=== PATIENT | female | born 1960 | race Caucasian/White ===

== ENCOUNTER 2017-06-01 18:23 | Emergency (ER) | payer BC ==
[~2017-06-01] VITALS: Ht 165.1 cm; Wt 105.1 kg
[~2017-06-01 18:23] MED LIST: ATV5 PO; DVN80125 PO; PANT40TA PO; SYN100 PO
[2017-06-01 18:36] VITALS: TEMP 36.3; Ht 165.1 cm; Wt 105.1 kg
[2017-06-01] MEDS ORDERED: SODIUM CHLORIDE 0.9% 1000ML 1,000 ML IV STA (18:43)
[2017-06-01] MEDS ORDERED: ONDANSETRON INJ 2 MG/ML 2 ML VIAL IV STA (18:43)
[2017-06-01 19:05] LABS: BASO % 0.2 %; BASO ABS # 0.03 K/uL (0-0.2); COMPLETE YES; EOS % 0.8 %; IG% 0.3 %; LYMPH % 6.9 %; MEAN CELL VOLUME 81.9 fL (80-100); MEAN CORPUSCULAR HEMOGLOBIN 28.6 pg (25-34); MEAN CORPUSCULAR HGB CONC 34.9 g/dl (32-36); MEAN PLATELET VOLUME 9.8 fL (7.4-10.4); MONO % 5.5 %; NEUT % 86.3 %; PLATELET COUNT 271 K/uL (130-400); RED BLOOD COUNT 5.25 M/uL (4.2-5.4); WHITE BLOOD COUNT 17.33 K/uL (4.8-10.8)
[2017-06-01 19:25] LABS: ALT/SGPT 34 U/L (12-78); BLOOD UREA NITROGEN 16 mg/dl (7-18); BUN/CREATININE RATIO 18.1 (10-20); CALCIUM 9.4 mg/dl (8.5-10.1); CARBON DIOXIDE 27 mmol/L (21-32); CHLORIDE 102 mmol/L (98-107); GLUCOSE 108 mg/dl (70-99); POTASSIUM 3.4 mmol/L (3.5-5.1); SODIUM 138 mmol/L (136-145)
[2017-06-01 19:28] LABS: ALKALINE PHOSPHATASE 117 U/L (45-117); AST/SGOT 27 U/L (15-37)
[2017-06-01] MEDS ORDERED: GABA-112 PO (19:30)
[2017-06-01] MEDS ORDERED: LEVO100T PO (19:30)
[2017-06-01] MEDS ORDERED: ONDANSETRON HOME PACK 4MG OD TAB PO ONE (19:30)
[2017-06-01] MEDS ORDERED: NALT1TAB14 PO ×2 (19:30)
[2017-06-01] MEDS ORDERED: LORA-741 PO (19:30)
[2017-06-01] MEDS ORDERED: VALS160T60 PO (19:30)
[2017-06-01] MEDS ORDERED: CETI10TA84 PO (19:31)
[2017-06-01] MEDS ORDERED: MULT-506 PO (19:31)
[2017-06-01] MEDS ORDERED: ONDA4TAB10 SL (19:38)
--- NOTE | 2017-06-01 19:39 | EMERGENCY ROOM VISIT NOTE ---
History First contact with patient: 18:38 Chief Complaint: GI ASSESSMENT Stated Complaint: FLU LIKE SYMPTOMS- THROWING UP History of Present Illness The patient is a 56 year old female who presents to the Emergency Room with complaints of nausea vomiting and diarrhea. The patient had acute onset of the above symptoms at 11 AM today while she was at work. The patient denies any fever, abdominal pain, urinary symptoms. The patient denies any hematochezia or melena. The patient states that there are other coworkers that have had similar symptoms a few days ago and another coworker who had the same symptoms today. Review of Systems 10 system review was performed and was negative unless stated otherwise history of present illness. Past Medical/Surgical History Hypertension, cholecystectomy Social History Smoking Status: Never Smoker Alcohol Use: none Drug Use: none Marital Status: Housing Status: lives with family Occupation Status: employed Current/Historical Medications Scheduled Cetirizine (Zyrtec), 10 MG PO DAILY Gabapentin (Neurontin), 200 MG PO TID Levothyroxine Sodium (Synthroid), 100 MCG PO DAILY Lorazepam (Ativan), 0.5 MG PO HS Multivitamin (Multivitamin), 1 TAB PO DAILY Naltrexone HCl-Bupropion HCl (Contrave 8-90 mg), 2 TABS PO QAM Naltrexone HCl-Bupropion HCl (Contrave 8-90 mg), 1 TAB PO QPM Pantoprazole (Protonix), 40 MG PO DAILY Valsartan/Hctz (Diovan Hct 160MG/25MG), 0.5 MG PO DAILY Physical Exam Vital Signs Date Time Temp Pulse Resp B/P (MAP) Pulse Ox O2 Delivery O2 Flow Rate FiO2 06/01/17 18:36 36.3 98 16 136/95 98 Room Air Physical Exam GENERAL: 56-year-old white female appears in no acute distress. MENTAL Status: Alert and oriented 3. MOUTH: Mucosa is moist NECK: Supple, no lymphadenopathy noted. No carotid bruits noted. LUNGS: Clear auscultation without wheezes rales or rhonchi. CARDIAC: Regular rate and rhythm without murmur. Pulses is full and equal throughout. BACK: No CVA tenderness noted. ABDOMEN: Positive bowel sounds all 4 quadrants. Soft, nontender to palpation without organomegaly or masses. EXTREMITIES: No cyanosis or edema noted. Medical Decision & Procedures Laboratory Results 06/01/17 18:56 Red Blood Count 5.25, Mean Corpuscular Volume 81.9, Mean Corpuscular Hemoglobin 28.6, Mean Corpuscular Hemoglobin Concent 34.9, Mean Platelet Volume 9.8, Neutrophils (%) (Auto) 86.3, Lymphocytes (%) (Auto) 6.9, Monocytes (%) (Auto) 5.5, Eosinophils (%) (Auto) 0.8, Basophils (%) (Auto) 0.2, Neutrophils # (Auto) 14.96, Lymphocytes # (Auto) 1.20, Monocytes # (Auto) 0.96, Eosinophils # (Auto) 0.13, Basophils # (Auto) 0.03 06/01/17 18:56 Test 06/01/17 18:56 White Blood Count 17.33 K/uL (4.8-10.8) Red Blood Count 5.25 M/uL (4.2-5.4) Hemoglobin 15.0 g/dL (12.0-16.0) Hematocrit 43.0 % (37-47) Mean Corpuscular Volume 81.9 fL (80-100) Mean Corpuscular Hemoglobin 28.6 pg (25-34) Mean Corpuscular Hemoglobin Concent 34.9 g/dl (32-36) Platelet Count 271 K/uL (130-400) Mean Platelet Volume 9.8 fL (7.4-10.4) Neutrophils (%) (Auto) 86.3 % Lymphocytes (%) (Auto) 6.9 % Monocytes (%) (Auto) 5.5 % Eosinophils (%) (Auto) 0.8 % Basophils (%) (Auto) 0.2 % Neutrophils # (Auto) 14.96 K/uL (1.4-6.5) Lymphocytes # (Auto) 1.20 K/uL (1.2-3.4) Monocytes # (Auto) 0.96 K/uL (0.11-0.59) Eosinophils # (Auto) 0.13 K/uL (0-0.5) Basophils # (Auto) 0.03 K/uL (0-0.2) RDW Standard Deviation 40.4 fL (36.4-46.3) RDW Coefficient of Variation 13.5 % (11.5-14.5) Immature Granulocyte % (Auto) 0.3 % Immature Granulocyte # (Auto) 0.05 K/uL (0.00-0.02) Anion Gap 9.0 mmol/L (3-11) Est Creatinine Clear Calc Drug Dose 86.0 ml/min Estimated GFR () 84.0 Estimated GFR (Non- 72.5 BUN/Creatinine Ratio 18.1 (10-20) Calcium Level 9.4 mg/dl (8.5-10.1) Total Bilirubin 0.4 mg/dl (0.2-1) Direct Bilirubin < 0.1 mg/dl (0-0.2) Aspartate Amino Transf (AST/SGOT) 27 U/L (15-37) Alanine Aminotransferase (ALT/SGPT) 34 U/L (12-78) Alkaline Phosphatase 117 U/L (45-117) Total Protein 8.3 gm/dl (6.4-8.2) Albumin 4.1 gm/dl (3.4-5.0) Lipase 133 U/L (73-393) Medications Administered Medications (Trade) Dose Ordered Sig/[place] Route Start Time Stop Time Status Last Admin Dose Admin Sodium Chloride 1,000 ml @ 999 mls/hr Q1H1M STAT IV 06/01/17 18:43 06/01/17 19:43 06/01/17 19:02 999 MLS/HR Ondansetron HCl (Zofran Inj) 4 mg NOW STAT IV 06/01/17 18:43 06/01/17 18:44 DC 06/01/17 19:00 4 MG ED Course The patient was evaluated. The patient's EMR medication list were reviewed. IV access was obtained. The patient was given 1 L normal saline wide-open. CBC and differential, renal profile, LFTs and lipase levels were ordered. The patient was given Zofran 4 mg IV push for nausea. Labs are reviewed the patient 's white count was elevated but this is most likely to active vomiting. Otherwise labs are unremarkable. The patient's case was discussed with Dr. Kenyon who agree with treatment plan. The patient was reevaluated was feeling better. The patient was discharged home in stable condition. She was given a Zofran home pack.. Medical Decision Differential diagnosis include acute viral gastroenteritis, bacterial gastroenteritis, bowel obstruction, colitis Medication Reconcilliation Current Medication List: was personally reviewed by me Blood Pressure Screening Patient's blood pressure: Normal blood pressure Impression Primary Impression: Gastroenteritis Departure Information Dispostion Home / Self-Care Condition GOOD Prescriptions Ondasetron Odt (ZOFRAN ODT) 4 Mg Tab 4 MG SL Q6H for Nausea, #10 TAB Prov: Daisy Vargas PA-C 06/01/17 Referrals Alex Yañez M.D. (PCP) Forms HOME CARE DOCUMENTATION FORM, IMPORTANT VISIT INFORMATION Patient Instructions ED [place], My [facility] Additional Instructions Push fluids. Follow bland diet. Advance diet slowly as tolerated. Take Zofran as needed for nausea. Off work tomorrow. If symptoms persist or worsen , return to ER. Work Instructions Return To Work: 2 days
[2017-06-01 20:07] VITALS: BP 131/86; PULSE 98; O2SAT 95
== END 2017-06-01 20:07 | disposition home or self-care (01) ==
LOC: C.EDB 18:25 → C.EDC 20:07
DX: K52.9 Noninfective gastroenteritis and colitis, unspecified (principal); I10 Essential (primary) hypertension; Z90.49 Acquired absence of other specified parts of digestive tract; Z79.899 Other long term (current) drug therapy

== ENCOUNTER → 2017-11-23 | Outpatient (CLI) | payer OTHER ==
[~2017-11-23] MED LIST changes: -ATV5 PO; +CETI10TA84 PO; -DVN80125 PO; +GABA-112 PO; +LEVO100T PO; +LORA-741 PO; +MULT-506 PO; +NALT1TAB14 PO; +ONDA4TAB10 SL; -SYN100 PO; +VALS160T60 PO
--- NOTE | 2017-11-24 15:40 | MAMMOGRAPHY REPORT ---
BILATERAL DIGITAL SCREENING MAMMOGRAM TOMOSYNTHESIS WITH CAD: 11/23/2017 CLINICAL HISTORY: Routine screening. Patient has no complaints. TECHNIQUE: Breast tomosynthesis in addition to standard 2D mammography was performed. Current study was also evaluated with a Computer Aided Detection (CAD) system. COMPARISON: Comparison is made to exams dated: 10/14/2016 mammogram, 09/25/2015 mammogram, 4 mammogram, 06/07/2013 mammogram, 04/16/2010 mammogram - [facility], and 03/29/2009. BREAST COMPOSITION: There are scattered areas of fibroglandular density in both breasts. FINDINGS: An asymmetry in the lateral right breast is stable on all available prior mammograms dating back to at least 2007. Nodular and focal asymmetries in the lower inner anterior left breast are st able dating back to at least 2012. Both of these findings are considered benign given long-term stab ility. There are a few benign rim calcifications in the right breast. No new suspicious mass, archi tectural distortion or cluster of microcalcifications is seen. IMPRESSION: ACR BI-RADS CATEGORY 1: NEGATIVE There is no mammographic evidence of malignancy. A 1 year screening mammogram is recommended. The pa tient will receive written notification of the results. Approximately 10% of breast cancers are not detected with mammography. A negative mammographic report should not delay biopsy if a clinically suggestive mass is present. Karmen Rodriguez M.D. ay/:11/23/2017 14:59:40 Subway Operator: Chelsy PATEL(Macy)(Glenda), [facility] letter sent: Normal 1/2 BI-RADS Code: ACR BI-RADS Category 1: Negative
== END | disposition home or self-care (01) ==
LOC: C.MAMM 13:55
PROVIDERS: ATTEND Obstetrics & Gynecology
DX: Z12.31 Encounter for screening mammogram for malignant neoplasm of breast (principal)

== ENCOUNTER 2022-07-22 05:06 | Observation (INO) ==
--- NOTE | 2022-06-10 15:37 | PAT Medication Instructions ---
Medication Instructions Date of Service June 10, 2022 Home Medications Medication Instructions Recorded pantoprazole 40 mg tablet,delayed 40 mg PO QAM #90 tabs 07/04/21 release (Protonix) cetirizine 10 mg tablet 10 mg PO QAM melatonin 10 mg tablet 10 mg PO HS PRN Sleep multivitamin 1 cap PO QAM topiramate 25 mg tablet (Topamax) 100 mg PO BID vit C 250 mg-vit E 90 mg-zinc 40 mg-copper 1 [id number]-[id number] capsule ( PreserVision AREDS-2) 1 tab PO BID pantoprazole 40 mg tablet,delayed release (Protonix) 40 mg PO QAM estradiol 0.01% (0.1 mg/gram) vaginal cream (Estrace) 2 g vaginal acetaminophen 650 mg tablet,extended release 650 mg PO Q12H PRN Pain bupropion HCl 200 mg tablet,12 hr sustained-release 200 mg PO BID diclofenac sodium 75 mg tablet,delayed release 75 mg PO BID PRN pain gabapentin 300 mg capsule 300 mg PO DIRECTED levothyroxine 125 mcg tablet (Synthroid) 125 mcg PO QAM naltrexone 50 mg tablet 25 mg PO BID simethicone 80 mg chewable tablet 80 mg PO BID PRN Heartburn valsartan 80 mg-hydrochlorothiazide 12.5 mg tablet 1 tab PO QAM Continue as directed gabapentin 300 mg capsule 300 mg PO DIRECTED naltrexone 50 mg tablet 25 mg PO BID ASK your surgeon for instructions diclofenac sodium 75 mg tablet,delayed release 75 mg PO BID PRN pain ASK your prescriber and surgeon estradiol 0.01% (0.1 mg/gram) vaginal cream (Estrace) 2 g vaginal STOP taking 2 weeks before surgery vit C 250 mg-vit E 90 mg-zinc 40 mg-copper 1 gg-thztsp-jxyojs capsule (PreserVision AREDS-2) 1 tab PO BID DO NOT take the morning of surgery cetirizine 10 mg tablet 10 mg PO QAM multivitamin 1 cap PO QAM valsartan 80 mg-hydrochlorothiazide 12.5 mg tablet 1 tab PO QAM simethicone 80 mg chewable tablet 80 mg PO BID PRN Heartburn Take morning of surgery With a small sip of water, OTHERWISE NOTHING TO EAT OR DRINK AFTER MIDNIGHT: topiramate 25 mg tablet (Topamax) 100 mg PO BID pantoprazole 40 mg tablet,delayed release (Protonix) 40 mg PO QAM acetaminophen 650 mg tablet,extended release 650 mg PO Q12H PRN Pain (if needed) bupropion HCl 200 mg tablet,12 hr sustained-release 200 mg PO BID levothyroxine 125 mcg tablet (Synthroid) 125 mcg PO QAM Take evening before surgery melatonin 10 mg tablet 10 mg PO HS PRN Sleep (if needed) topiramate 25 mg tablet (Topamax) 100 mg PO BID acetaminophen 650 mg tablet,extended release 650 mg PO Q12H PRN Pain (if needed) bupropion HCl 200 mg tablet,12 hr sustained-release 200 mg PO BID simethicone 80 mg chewable tablet 80 mg PO BID PRN Heartburn (if needed) Other Notes If you have any questions please call us at [phone] or [phone] or [phone] or [phone]
--- NOTE | 2022-06-12 12:18 | Anesthesiology Consultation ---
Date of Service June 12, 2022 Assessment & Plan (1) Encounter for pre-operative examination: - awaiting 2016 lumbar spine surgery anesthesia/surgical records from [facility] [place]. - severe PONV: Pt requests Emend given significant benefit with this during back surgery at [facility] [place] in 2016. She believes received oral medication just prior to surgery and then IV form throughout. Pt denies issue with out of pocket cost at that time. We will attempt to obtain surgical and anesthesia records. Medication is in stock in oral and IV form per pharmacy. - neuraxial vs GA: Pt expresses preference for GA d/t her concerns regarding lumbar spine history accepting potential higher likelihood of PONV with GA vs neuraxial. She states also plans to further discuss with anesthesiologist am DOS. Bolus not ordered at this time. - anesthesiologist request: Dr. Lenard Jefferson, OR staff made aware. - R knee arthroscopy 08/21/20: LMA#4. No postop issues per anesthesia progress note. - COVID screening: Per assessment on 06/12/2022: Travel screen negative, no known COVID-19 positive contacts or current COVID-19 related symptoms in past 2 weeks. Pt vaccinated. Surgeon arranging preop COVID testing, scheduled 06/26/2022. Awaiting results. Chart Review Chart Review: Pending: Refer to Additional Notes / Consult section and Patient seen in Pre Admission Testing Teaching & Discussion Pre-Anesthesia Teaching/Discussion Notes: Instructed NPO after midnight before surgery, except medications with 15 cc of water. Medication instructions provided according to the PAT guidelines. History Surgery Operation Date: 06/30/22 12:20 Proposed Procedures p Left Total Hip Arthroplasty - Raad Yusuf MD Height/Weight Height: 5 ft 4.5 in Weight: 95.8 kg Allergies Allergy/AdvReac Type Severity Reaction Status Date / Time amoxicillin AdvReac Mild upset Verified 06/12/22 13:50 stomach, nausea clavulanic acid AdvReac Mild upset Verified 06/12/22 13:50 [From Augmentin] stomach, nausea Medications Home Medications Medication Instructions Recorded Confirmed Last Taken cetirizine 10 mg tablet 10 mg PO QAM 08/04/19 06/10/22 08/20/20 melatonin 10 mg tablet 10 mg PO HS PRN Sleep 08/08/19 06/10/22 08/20/20 multivitamin 1 cap PO QAM 08/08/19 06/10/22 08/20/20 topiramate 25 mg tablet (Topamax) 100 mg PO BID 04/23/21 06/10/22 Unknown vit C 250 mg-vit E 90 mg-zinc 40 1 tab PO BID 04/23/21 06/10/22 Unknown mg-copper 1 [id number]-[id number] capsule (PreserVision AREDS-2) pantoprazole 40 mg tablet,delayed 40 mg PO QAM #90 tabs 07/04/21 06/10/22 Unknown release (Protonix) estradiol 0.01% (0.1 mg/gram) 2 g vaginal .COMPLEX 01/01/22 06/10/22 Unknown vaginal cream (Estrace) acetaminophen 650 mg 650 mg PO Q12H PRN Pain 06/10/22 06/10/22 Unknown tablet,extended release bupropion HCl 200 mg tablet,12 hr 200 mg PO BID 06/10/22 06/10/22 Unknown sustained-release diclofenac sodium 75 mg 75 mg PO BID PRN pain 06/10/22 06/10/22 Unknown tablet,delayed release gabapentin 300 mg capsule 300 mg PO DIRECTED 06/10/22 06/10/22 Unknown levothyroxine 125 mcg tablet 125 mcg PO QAM 06/10/22 06/10/22 Unknown (Synthroid) naltrexone 50 mg tablet 25 mg PO BID 06/10/22 06/10/22 Unknown simethicone 80 mg chewable tablet 80 mg PO BID PRN Heartburn 06/10/22 06/10/22 Unknown valsartan 80 1 tab PO QAM 06/10/22 06/10/22 Unknown mg-hydrochlorothiazide 12.5 mg tablet Past Medical History Medical History (Updated 06/12/22 @ 12:25 by Liudmila Ku PA-C) Calcium pyrophosphate deposition disease (CPPD) Chronic back pain Chronic venous insufficiency follows with [facility] GERD (gastroesophageal reflux disease) controlled, stable per pt Hearing deficit Hypertension controlled, stable per pt Hypertriglyceridemia no meds per pt Hypothyroidism Nausea and vomiting after administration of anesthetic agent severe--needs multiple nausea medications, last back sx at [facility] [place] pt received Emend and worked well Neuropathy left foot s/p back surgery Obesity Rosacea Patient denies h/o stroke, seizures, heart attack, heart failure, DM, blood clots or blood transfusions. Exercise / Class Metabolic Activity II 4-5 Yardwork/Stairs/Walk up hill (denies CP or SOB with 1 FOS) Past Family History Family History Grandmother (Maternal) Breast cancer, Onset Age: 70 Aunt Breast cancer, Onset Age: 40 paternal Family/Other BRCA gene mutation positive paternal cousin Father Myocardial infarction Other No family history of adverse response to anesthesia Denies family history of Ovarian cancer Prostate cancer Colorectal cancer Past Surgical History Surgical History (Updated 06/12/22 @ 12:26 by Liudmila Ku PA-C) History of back surgery lumbar microdisectomy History of colonoscopy with polypectomy History of esophagogastroduodenoscopy (EGD) History of lumbar discectomy L3, L5, S1 History of lumbar laminectomy History of placement of ear tubes multiple History of tooth extraction History of wisdom tooth extraction S/P cholecystectomy S/P tubal ligation Status post arthroscopy of right knee 08/21/20: LMA#4. No postop issues per anesthesia progress note. Past Anesthesia History No Hx of Anesthesia Complications and No Family Hx of Anesthesia Complications History of PONV History of PONV (severe required Emend (pill before surgery and pt thinks IV after)) and Hx of Motion Sickness Social History Smoking Status: Never smoker Do You Dip or Chew Tobacco: No Hx Alcohol Use: No Hx Substance Use: No substance use type: does not use Review of Systems Snoring, denies witnessed apneas. Patient denies chest pain, shortness of breath, dyspnea on exertion, fever, chills, cough, wheezing, or palpitations. Physical Exam Vital Signs Vitals BP 109/77 P 81 TEMP 97.9 SP02 98% on RA RESP 17 Physical Full cervical extension range of motion without pain TMD 3.5 finger breadths Mallampati Score 2 Dentition: intact, several caps/crowns-none in front, several implants back upper and lower bilat; denies chipped or loose teeth, bridges Lungs: normal respiratory effort. Clear throughout to auscultation, no adventitious breath sounds Cardiac: regular rate and rhythm, no murmurs noted Carotid arteries: negative bruit bilat Lab Results Anesthesia Preop Results Results Anesthesia Widget: WBC 6.00 K/ul (4.8-10.8) 06/12/22 Hgb 12.5 g/dl (12.0-16.0) 06/12/22 Hct 37.7 % (34.1-44.9) 06/12/22 Plt 262 K/uL (130-400) 06/12/22 Na 140 mmol/L (136-145) 06/12/22 K 3.2 mmol/L (3.5-5.1) L 06/12/22 Cl 102 mmol/L (98-107) 06/12/22 CO2 29 mmol/L (21-32) 06/12/22 BUN 26 mg/dl (6-23) H 06/12/22 Creat 0.80 mg/dl (0.6-1.2) 06/12/22 Glucose Level 104 mg/dl (70-99(Fasting)) H 06/12/22 PT 10.5 Seconds (9.0-12.0) 06/12/22 PTT 27.3 Seconds (21.0-31.0) 06/12/22 INR 1.0 (0.9-1.1) 06/12/22 Blood Type O Positive 06/12/22 Antibody Screen NEGATIVE 06/12/22 Testing Electrocardiogram Date: 06/12/22 NSR, rate [address] abnormality Chest X-Ray Date: 06/12/22 Frontal and lateral radiographs of the chest demonstrate the cardiomediastinal silhouette to be within normal limits. The lungs are clear of alveolar opacities. There is no evidence for effusion bilaterally. There is no evidence for vascular congestion. There is no acute osseous pathology. IMPRESSION: 1. No acute cardiopulmonary disease. Other Testing Vascular duplex 04/30/22 No evidence of significant lower extremity arterial occlusive disease bilaterally
--- NOTE | 2022-07-04 08:57 | History and Physical Report ---
CHIEF COMPLAINT: Persistent and progressive left hip pain. HISTORY OF PRESENT ILLNESS: The patient is a 62-year-old female who is well known to me from a previ ous orthopedic issues including a right knee scope done about 2 years ago. She has done well until a bout the past year when she started to develop increased pain and discomfort in her left hip. It has gradually gotten worse over time. She has got groin pain, thigh pain radiating down to her knee. N o known injury. She has been treated with the medicines, which have become less successful over time . X-rays show progressive hip arthritis. She would like to have her hip fixed. Of note, she does have a history of 3 previous spine surgeries and has got some chronic back issues. PAST MEDICAL HISTORY: 1. Hypertension. 2. Hypothyroidism. 3. Back arthritis. 4. Gastroesophageal reflux disease. 5. Mild obesity, BMI of 36. PAST SURGICAL HISTORY: Includes: 1. Three back surgeries. 2. Cholecystectomy. 3. Right knee arthroscopy 2 years ago. ALLERGIES: CLAVULANIC ACID AND AMOXICILLIN. CURRENT MEDICATIONS: Include: 1. Tylenol. 2. Bupropion. 3. Cetirizine. 4. Diclofenac. 5. Estrace. 6. Gabapentin. 7. Synthroid. 8. Topamax. 9. Valsartan/hydrochlorothiazide. 10. Vitamin C. 11. Simethicone. 12. Protonix. 13. Naltrexone. 14. Multivitamin. 15. Melatonin. SOCIAL HISTORY: A 62-year-old female. She is . Does not smoke. FAMILY HISTORY: Noncontributory. REVIEW OF SYSTEMS: Negative for diabetes. No chest pain or shortness of breath. No history of DVT or PE. She does have a history of multiple back operations. PHYSICAL EXAMINATION: GENERAL: Shows a pleasant middle-aged female, looks to be in pretty good health. HEENT: Benign. NECK: Supple. No lymphadenopathy. LUNGS: Clear to auscultation. HEART: Regular rate and rhythm. ABDOMEN: Soft, nontender, nondistended. EXTREMITIES: Grossly neurovascularly intact except as follows. Examination of the left hip revealed patient walks with a slightly antalgic gait. Leg lengths were p retty equal. She does have fairly good hip motion with internal rotation about 10 degrees. This peoples s recreate pain. No knee effusion. Negative straight leg raise. X-RAYS: X-rays of the left hip were reviewed. It shows advanced hip arthritis. She has got complet e loss of joint space. This has progressed over the past year. ASSESSMENT: A 62-year-old female with a history of 3 back surgeries in the past with advanced left h ip arthritis. She progressed markedly over the past year. She has failed conservative treatment and would like to have her left hip replaced. Of note, she has been scheduled previously, but canceled due to some COVID issues. PLAN: We are going to proceed now with left hip replacement. The risks and benefits of this procedu re were explained to the patient and include but not limited to DVT, PE, , infection, neurologic al injury, vascular injury, bleeding problem, pain, limited range of motion, stiffness, failure to re lieve symptoms, need for further surgery in the future, etc. She is fully aware of this is not going to fix her back problem. She is hoping to be discharged to home. Her was hoping she go to rehabilitation. I think it is unlikely she will qualify and likely discharge to home with home health postop. We will see how she recovers in the hospital. Job ID: [id number]
[~2022-07-22 05:06] MED LIST changes: +ACETAMINOPHEN 500 MG TAB PO SCH; -CETI10TA84 PO; +CeleBREX 200 MG CAP PO SCH; +FAMOTIDINE 20 MG TAB PO SCH; -GABA-112 PO; -LEVO100T PO; -LORA-741 PO; +LR 15ML/HR IV SCH; +LR 60ML/HR IV SCH; +METOCLOPRAMIDE HCL 10 MG TABLET PO SCH; -MULT-506 PO; -NALT1TAB14 PO; -ONDA4TAB10 SL; -PANT40TA PO; +Scopolamine 1 MG TDSY TD SCH; +Scopolamine CHECK PATCH PLACEMENT SCH; +TRANEXAMIC ACID 1,000 MG **IV Pre-op IV SCH; -VALS160T60 PO; +ceFAZolin 2000MG 2,000 MG/15 ML SYR IV SCH
[2022-07-22] MEDS ORDERED: CeleBREX 200 MG CAP PO SCH (06:00)
[2022-07-22] MEDS ORDERED: Scopolamine 1 MG TDSY TD SCH (06:00)
[2022-07-22] MEDS ORDERED: ceFAZolin 2000MG 2,000 MG/15 ML SYR IV SCH (06:00)
[2022-07-22] MEDS ORDERED: FAMOTIDINE 20 MG TAB PO SCH (06:00)
[2022-07-22] MEDS ORDERED: LR 15ML/HR IV SCH (06:00)
[2022-07-22] MEDS ORDERED: TRANEXAMIC ACID 1,000 MG **IV Pre-op IV SCH (06:00)
[2022-07-22] MEDS ORDERED: LR 60ML/HR IV SCH (06:00)
[2022-07-22] MEDS ORDERED: ACETAMINOPHEN 500 MG TAB PO SCH (06:00)
[2022-07-22] MEDS ORDERED: METOCLOPRAMIDE HCL 10 MG TABLET PO SCH (06:00)
[2022-07-22] MEDS ORDERED: BUPIVACAINE 0.5 % 5 MG/1 ML PF 10ML VIAL ONE (06:23)
[2022-07-22] MEDS ORDERED: MoRPHine SULFATE PF 1 MG/ML 10 ML AMP/VIAL ONE (06:25)
[2022-07-22] MEDS ORDERED: MIDAZOLAM HCL 1 MG/ML 2ML VIAL ONE (06:25)
[2022-07-22] MEDS ORDERED: EPINEPHrine INJ 1 MG/ML AMP ONE (06:36)
[2022-07-22] MEDS ORDERED: APREPITANT 40 MG CAP PO STA (06:37)
[2022-07-22] MEDS ORDERED: BUPIVACAINE 0.5 % 5 MG/1 ML MPF 30ML VIAL ONE (06:37)
[2022-07-22] MEDS ORDERED: fentaNYL citrate 100 MCG/2 ML VIAL ONE (06:40)
--- NOTE | 2022-07-22 06:50 | History & Physical Bridge Note ---
Date of Service July 22, 2022 History & Physical Bridge Note I have examined the patient, reviewed the History & Physical and in the interval since the performance of the History & Physical I have noted the following changes of clinical significance: no changes noted
[2022-07-22] MEDS ORDERED: KETOROLAC 30 MG/ML VIAL IV PRN (06:53)
[2022-07-22] MEDS ORDERED: LABETALOL HCL IV 5 MG/ML 20ML IV PRN (06:53)
[2022-07-22] MEDS ORDERED: ONDANSETRON INJ 2 MG/ML 2 ML VIAL IV PRN ×2 (06:53→10:50)
[2022-07-22] MEDS ORDERED: ATROPINE SULFATE 0.1 MG/ML 10ML SYR IV PRN (06:53)
[2022-07-22] MEDS ORDERED: DROPERIDOL 5 MG/2 ML VIAL IV PRN (06:54)
[2022-07-22] MEDS ORDERED: SUGAMMADEX SODIUM 200 MG/2 ML VIAL IV ONE (07:19)
[2022-07-22] MEDS ORDERED: DEXAMETHASONE SOD INJ 4 MG/ML VIAL ONE (07:22)
[2022-07-22] MEDS ORDERED: PROPOFOL IV EMULSION 10 MG/ML 20 ML VIAL IV ONE (07:22)
[2022-07-22] MEDS ORDERED: ONDANSETRON INJ 2 MG/ML 2 ML VIAL ONE (07:22)
[2022-07-22] MEDS ORDERED: ROCURONIUM BROMIDE 10 MG/ML 5 ML VIAL IV ONE (07:23)
[2022-07-22] MEDS ORDERED: KETOROLAC 30 MG/ML VIAL ONE (08:20)
[2022-07-22] MEDS: HYDROmorphone INJ 1 MG/ML SYRINGE IV PRN ×8 (08:46→10:07)
--- NOTE | 2022-07-22 08:51 | Operative Report ---
PG Post Operative Report Pre & Post Diagnosis Operation Date: 07/22/22 07:00 Pre-Op Diagnosis: Left Hip Degenerative Joint Disease Post-Op Diagnosis: Left Hip Degenerative Joint Disease I identified the patient and participated in the time-out.: Yes Procedure Operation Date: 07/22/22 07:00 Actual Procedures p Left Total Hip Arthroplasty, Uncemented(Left) - Raad Yusuf MD Surgeon Raad Yusuf MD Manager Transport Chadd Patel PA-C Estimated Blood Loss 200 Findings Consistent with Post-Op Diagnosis Operative findings revealed advanced left hip arthritis. She had a large hip joint effusion. Significant degenerative changes and osteophytes around the femoral head and neck. Very little little acetabular osteophytes. Fluids 1000 cc Specimens Left femoral head sent for pathology Drains None Anesthesia Type General Complications none Disposition Accompanied Patient To Recovery: Yes Indications Patient is a 62-year-old female whose had about a year history of gradually progressive increasing left hip pain discomfort got markedly worse over the past several months. She failed all conservative measures. X-rays show progressive hip arthritis. She elected proceed with surgical treatment. Description of Procedure Operative implants consist of: 1 Biomet G7 size 50 mm acetabular shell. 2. [place] hole medical assisting instructor. 3. 6.5 cancellous acetabular screws 1 of 35 mm length 1 to 20 mm length. 4. Highly cross-linked polyethylene liner with a 50 mm outer diameter and 36 mm inner diameter. 5. DePuy Corail size 9 short neck 125 degree angle femoral stem. 6. +5/36 mm ceramic articular ball. The patient was taken the operating, identified, placed on the operating table supine position protectors were properly padded. IV antibiotics were tried by the anesthesia team. The patient refuses spinal anesthetic due to her multiple spine surgeries. A general anesthetic was implemented. A Isbell catheter was placed in sterile fashion. The patient was then placed in the right lateral decubitus position. Axillary roll was placed. A Stulberg hip positioner was used for positioning. Left hip and leg were then prepped and draped in the usual sterile fashion. A posterior lateral posterior left hip was then performed through a curvilinear incision centered over the greater trochanter. Sharp dissection was carried through subcutaneous tissue down to level the IT band gluteal fascia the IT band gluteal fascia/longitudinally in line with skin incision. The greater bursa was excised. The piriformis and external rotators along with the posterior hip joint capsule were then released as a single layer. Great care was taken throughout the procedure protect the sciatic nerve at all times. Hip was internally rotated and dislocated. A femoral neck osteotomy cut was made with Final Cut about 14 mm above the lesser trochanter. Femoral head was removed and sent for pathology. The femur was retracted anteriorly. Attention drawn the acetabulum. The acetabular labrum was excised. Pulmonary fat was excised. Sequential reaming the acetabular was then performed begin with size 43 and progressing up to a 49. I reamed a little bit with a 50 reamer and then placed a 50 mm cup in about 40 degrees lateral opening and 20 degrees of anteversion. I did put a little more anteversion in the Compleven disc. Is for multiple spine surgeries. The cup was then fixed with two 6.5 cancellous acetabular screws. A trial liner was placed. We elected to use a 36 head in order to maximize her stability. Attention drawn the femur. The proximal femur was entered with a Globitel cutter followed by canal finder. Then broached begin the size 8 and progressing up to a 9. She had a very good cancellous envelope. We then trialed the hip. The +5 articular ball with a short neck seem most appropriate. We created soft tissue tension appropriately and and was fully stable in all positions. We elect to place these implants. All trial implants were removed. An apex hole medical assisting instructor was placed. Highly cross-linked polyethylene liner was placed followed by a 9 KLA short neck 125 degree angle femoral stem. A +5/36 mm ceramic articular ball was placed. Hip was located once again found to be stable. Attention drawn toward closing. Wound was irrigated scope sounds pulsatile lavage solution. I did inject locally with 60 cc of half percent Marcaine with epinephrine. Posterior capsule and external rotators then repaired through drill holes in the posterior trochanter with #2 Tycron suture. The IT band gluteal fascia then closed in 1 PDS suture in a running fashion. The subcutaneous tissues were then closed in 2 layers with a deep layer #2 Vicryl sutures in a buried interrupted fashion the more superficial layer with 2-0 Dexon suture in a buried interrupted fashion. Skin was closed with skin enrique. A Prevena VAC dressing was applied to the low thick soft tissue envelope. The patient was then placed in the supine position and brought out of general anesthesia treatment. She was transferred to the recovery room in stable condition. Patient tolerated the procedure well and there were no complications. Chadd Patel, my physician child and youth program assistant, was present for the entire procedure. His assistance was essential and required for appropriate patient positioning, prepping and draping, surgical exposure, performing the technical details of the operation, placement the implants, closure of the wound, and placement of the sterile bandage. I attest to the content of the Intraoperative Record and any orders documented therein. Any exceptions are noted below.
--- NOTE | 2022-07-22 09:51 | Anesthesiology Progress Note ---
Date of Service July 22, 2022 Anesthesia Post Procedure Vital Signs Vital Signs: Temp Pulse Pulse Resp BP Pulse Ox O2 Del Method 07/22/22 09:40 75 12 151/86 H 99 Room Air 07/22/22 09:30 36.7 C 76 12 146/81 H 99 Room Air 07/22/22 09:20 75 20 145/89 H 100 Room Air 07/22/22 09:10 76 24 127/79 100 Oxymask 07/22/22 09:00 78 16 143/81 H 100 Oxymask 07/22/22 08:50 79 22 151/100 H 100 Oxymask 07/22/22 08:42 36.2 C L 81 14 117/79 100 Oxymask 07/22/22 05:31 37 C 84 18 150/84 H 96 Room Air O2 Flow Rate 07/22/22 09:40 07/22/22 09:30 07/22/22 09:20 07/22/22 09:10 4 07/22/22 09:00 4 07/22/22 08:50 6 07/22/22 08:42 6 07/22/22 05:31 Pain Intensity Left Hip: Pain Intensity: 5 Transfer of Care Handoff Completed per policy Notes Mental Status: alert / awake / arousable Patient Amnestic to Procedure: Yes Nausea / Vomiting: adequately controlled Pain: adequately controlled Airway Patency, RR, SpO2: stable & adequate BP & HR: stable & adequate Hydration State: stable & adequate Anesthetic Complications: no major complications apparent
--- NOTE | 2022-07-22 10:19 | XRay Report ---
XR hip 1V LT w pelvis HISTORY: 62 years-old Female IN PACU - Post Surgical left hip total joint arthroplasty COMPARISON: Pelvis and hip radiographs 03/02/2022 TECHNIQUE: AP view of the pelvis with crosstable lateral view of the left hip FINDINGS: Left hip total joint arthroplasty demonstrates satisfactory alignment. Expected postoperative soft ti ssue swelling with deep tissue air. No acute fracture or unexpected opaque foreign body. Mild to mode rate right hip osteoarthritis. IMPRESSION: Left hip total joint arthroplasty with expected postoperative changes. ACT 112: Negative or not required by law. The above report was generated using voice recognition software. It may contain grammatical, syntax o r spelling errors. Electronically signed by: Jhonny Obregon M.D. 07/22/2022 10:17 AM
[2022-07-22] MEDS ORDERED: SIMETHICONE 80 MG CHEW PO PRN (10:50)
[2022-07-22] MEDS ORDERED: METOCLOPRAMIDE HCL INJ 5 MG/ML 2 ML VIAL IV PRN (10:50)
[2022-07-22] MEDS ORDERED: bisacodyL 10 MG SUPP PR PRN (10:50)
[2022-07-22] MEDS ORDERED: NALOXONE HCL 0.4 MG/1 ML VIAL/CARP IV PRN (10:50)
[2022-07-22] MEDS ORDERED: diphenhydrAMINE Capsule 25 MG CAP PO PRN (10:50)
[2022-07-22] MEDS ORDERED: HYDROmorphone INJ 0.5 MG/0.5 ML SYR IV PRN (10:50)
[2022-07-22] MEDS ORDERED: MAGNESIUM HYDROXIDE SUSP 30 ML UDC PO PRN (10:50)
[2022-07-22] MEDS ORDERED: NON-FORMULARY MEDICATION (Vit C,E-Zn-Coppr-Lutein-Zeaxan [Preservision Areds-2] 250-90-40- PO SCH (10:50)
[2022-07-22] MEDS ORDERED: NON-FORMULARY MEDICATION (Multivitamin capsule) PO SCH (10:50)
[2022-07-22] MEDS ORDERED: ALUMINUM/MAGNESIUM SUSP 30 ML UDC PO PRN (10:50)
[2022-07-22] MEDS ORDERED: MELATONIN 3 MG TAB PO PRN (11:03)
[2022-07-22] MEDS: SODIUM CHLORIDE 0.9% 1000ML 1,000 ML IV SCH ×2 (11:45→22:28)
[2022-07-22] MEDS: ACETAMINOPHEN 500 MG TAB PO SCH ×2 (14:04→22:25)
[2022-07-22] MEDS: CETIRIZINE HCL 10 MG TABLET PO SCH (14:04)
[2022-07-22] MEDS: DOCUSATE SODIUM 100 MG CAP PO SCH ×2 (14:05→22:27)
[2022-07-22] MEDS: hydroCHLOROthiazide 25 MG TAB PO SCH (14:05)
[2022-07-22] MEDS: VALSARTAN 80 MG TAB PO SCH (14:05)
[2022-07-22] MEDS: ASPIRIN 81 MG ECTAB PO SCH ×2 (14:06→22:27)
[2022-07-22] MEDS: MULTIVITAMIN TAB PO SCH (14:06)
[2022-07-22] MEDS: DOCUSATE SODIUM/SENNA 50/8.6MG TAB PO SCH (14:06)
[2022-07-22] MEDS: NALTREXONE HCL 50 MG TAB PO SCH ×2 (14:06→22:49)
[2022-07-22] MEDS: KETOROLAC 30 MG/ML VIAL IV SCH ×2 (14:07→20:23)
[2022-07-22] MEDS: ceFAZolin 2000MG 2,000 MG/15 ML SYR IV SCH ×2 (14:08→22:24)
[2022-07-22] MEDS ORDERED: TRANEXAMIC ACID / 0.7% NACL 1,000 MG/100 ML BAG IV SCH (14:45)
[2022-07-22] MEDS: GABAPENTIN 300 MG CAP PO SCH ×3 (15:58→22:26)
[2022-07-22] MEDS: Scopolamine CHECK PATCH PLACEMENT SCH (15:59)
[2022-07-22] MEDS: oxyCODONE HCL IR 5 MG TAB (IMMEDIATE RELEASE) PO PRN ×2 (16:03→22:24)
[2022-07-22] MEDS: ASCORBIC ACID 500 MG TAB PO SCH (18:01)
[2022-07-22] MEDS ORDERED: SENNA 8.6 MG TAB PO SCH (21:00)
[2022-07-22] MEDS: buPROPion SR 100 MG TABCR PO SCH (22:27)
[2022-07-22] MEDS: TOPIRAMATE 100 MG TAB PO SCH (22:27)
[2022-07-23] MEDS: Scopolamine CHECK PATCH PLACEMENT SCH ×2 (00:43→08:43)
[2022-07-23] MEDS: KETOROLAC 30 MG/ML VIAL IV SCH ×3 (02:30→13:26)
[2022-07-23] MEDS: ACETAMINOPHEN 500 MG TAB PO SCH ×2 (05:57→13:28)
[2022-07-23] MEDS: oxyCODONE HCL IR 5 MG TAB (IMMEDIATE RELEASE) PO PRN ×2 (05:58→11:38)
[2022-07-23] MEDS: GABAPENTIN 300 MG CAP PO SCH ×2 (06:00→11:35)
[2022-07-23] MEDS ORDERED: LEVOTHYROXINE SODIUM 125 MCG TABLET PO SCH (06:30)
[2022-07-23 06:42] LABS: Basophils # (auto) 0.06 K/uL (0-0.2); Basophils % (auto) 0.6 %; Eosinophils # (auto) 0.11 K/uL (0-0.50); Eosinophils % (auto) 1.2 %; Immature Granulocytes # (auto) 0.05 K/uL (0.00-0.02); Immature Granulocytes % (auto) 0.5 %; Lymphocytes # (auto) 1.42 K/uL (1.2-3.4); Mean Corpuscular Hemoglobin 28.6 pg (25.0-34.0); Mean Corpuscular Hgb Conc 33.3 g/dL (32.0-36.0); Mean Corpuscular Volume 85.7 fL (80.0-100.0); Mean Platelet Volume 9.7 fL (9.4-12.3); Monocytes # (auto) 1.01 K/uL (0.24-0.82); Monocytes % (auto) 10.7 %; Neutrophils # (auto) 6.81 K/uL (1.4-6.5); Platelet Count 197 K/uL (130-400); RDW Coefficient of Variation 12.6 % (11.5-14.5); RDW Standard Deviation 38.9 fL (36.4-46.3); Red Blood Count 3.85 M/uL (3.93-5.22); White Blood Count 9.46 K/ul (4.8-10.8)
[2022-07-23 07:01] LABS: BUN Creatinine Ratio 19.3 (10-20); Calcium 8.5 mg/dl (8.5-10.1); Creatinine Clr Calc Pharmacy 76.6 ml/min; Est GFR (African American) 82.8 ml/min; Est GFR (Non-African American) 71.4 ml/min
[2022-07-23] MEDS ORDERED: dexAMETHasone 10 MG in SYRINGE 0 ML IV SCH (08:00)
[2022-07-23] MEDS: hydroCHLOROthiazide 25 MG TAB PO SCH (08:39)
[2022-07-23] MEDS: buPROPion SR 100 MG TABCR PO SCH (08:39)
[2022-07-23] MEDS: DOCUSATE SODIUM 100 MG CAP PO SCH (08:39)
[2022-07-23] MEDS: ASPIRIN 81 MG ECTAB PO SCH (08:40)
[2022-07-23] MEDS: VALSARTAN 80 MG TAB PO SCH (08:41)
[2022-07-23] MEDS: DOCUSATE SODIUM/SENNA 50/8.6MG TAB PO SCH (08:41)
[2022-07-23] MEDS: MULTIVITAMIN TAB PO SCH (08:41)
[2022-07-23] MEDS: CETIRIZINE HCL 10 MG TABLET PO SCH (08:42)
[2022-07-23] MEDS: ASCORBIC ACID 500 MG TAB PO SCH (08:42)
[2022-07-23] MEDS: TOPIRAMATE 100 MG TAB PO SCH (08:42)
[2022-07-23] MEDS ORDERED: PANTOprazole 40 MG TAB PO SCH (09:00)
[2022-07-23] MEDS ORDERED: POTASSIUM CHLORIDE CRTAB 20 MEQ TABCR PO STA (13:39)
--- NOTE | 2022-07-23 18:22 | Progress Notes ---
DATE OF SERVICE: 07/23/2022. SUBJECTIVE: A 62-year-old female postoperative day 1 from a left uncemented total hip replacement. She is doing pretty well. Pain is very manageable. She has gotten up and walked around. Therapy we nt okay. Looking to go home. OBJECTIVE: VITAL SIGNS: Temperature 36.6. Vital signs are stable. PHYSICAL EXAMINATION: GENERAL: Shows a pleasant middle-aged female. She is sitting up in bed, looks comfortable. LUNGS: Clear to auscultation. HEART: Regular rate and rhythm. ABDOMEN: Soft, nontender, nondistended. EXTREMITIES: Grossly neurovascularly intact except as follows: Examination of the left hip reveals a Prevena wound VAC to be in place. Thigh is soft and supple. M inimal if any swelling. Leg lengths were equal. Hip is located. She is neurologically intact. LABORATORY DATA: Hemoglobin 11.0. Hematocrit 33.0. Electrolytes are stable. Potassium is a little bit low at 3.0. ASSESSMENT: A 62-year-old female postoperative day 1 from a left uncemented total hip replacement, d oing well. Her pain is controlled. Hip is located. She is neurologically intact. Did pretty well in therapy. She is hypokalemic and we will supplement her potassium. PLAN: 1. DVT prophylaxis includes thigh-high TEDs, SCDs, and aspirin twice a day. 2. PT, OT, weightbear as tolerated. Left total hip protocol. 3. Pain control, doing okay with current pain regimen. 4. Hypokalemia. We will supplement her potassium before discharge. 5. Disposition: Plan to discharge to home with some home health later today and her 's raul macedo. Job ID: [id number]
--- NOTE | 2022-07-24 20:21 | Discharge Summary ---
Date of Service July 24, 2022 Discharge Data Procedures Performed Operation Date: 07/22/22 07:00 Actual Procedures p Left Total Hip Arthroplasty, Uncemented(Left) - Raad Yusuf MD Hospital Course (1) S/P total left hip arthroplasty: This is a 62 year old patient admitted on 07/22/22 and underwent total hip arthroplasty. She tolerated the procedure well and there were no complications. Transferred to the PACU post op and later to the orthopedic floor for further care. She was given ancef for antibiotic prophylaxis. She was also given DARÍO stockings, SCDs, and aspirin for DVT prophylaxis. Hemoglobin, hematocrit, and vital signs were monitored during her hospital stay and remained stable. Did not require any blood transfusions. She did receive a potassium supplement due to hypokalemia. There were no complications during their hospital stay. By post op day #1 the patient was tolerating a regular diet, pain was reasonably controlled with oral pain medicine, and she was participating in physical therapy. On post op day #1 the patient was discharged home and set up with home health care. She was given printed discharge instructions including prescriptions for extra strength tylenol, aspirin, toradol, zofran, senokot, and oxycodone. Continue physical therapy, weight bearing as tolerated. Continue hip precautions. Continue DARÍO stockings. Follow up approximately 2 weeks post op or sooner if there are problems or concerns. Coding Level of Care Code None Diagnoses S/P total left hip arthroplasty Z96.642
== END 2022-07-23 15:00 | disposition home health service (06) ==
LOC: ASU 05:06 → 3E 05:06

== ENCOUNTER 2025-10-09 07:17 | Observation (INO) ==
--- NOTE | 2025-08-31 10:50 | PAT Medication Instructions ---
Medication Instructions Date of Service August 31, 2025 Home Medications Medication Instructions Recorded pantoprazole 40 mg tablet,delayed 40 mg PO QAM #90 tabs 03/21/25 release (Protonix) ciprofloxacin HCl 0.3 % eye drops See Rx Instructions ophthalmic 07/17/25 (eye) BID PRN otorrhea #5 mL levothyroxine 125 mcg tablet 125 mcg PO QAM #90 tabs 07/30/25 (Synthroid) estradiol 0.01% (0.1 mg/gram) 1 g vaginal UD #42.5 grams 08/02/25 vaginal cream diclofenac sodium 75 mg 75 mg PO BID PRN pain #180 tabs 08/08/25 tablet,delayed release furosemide 40 mg tablet See Rx Instructions PO .COMPLEX 08/08/25 #10 tabs potassium chloride 10 mEq 10 meq PO BID #180 tabs 08/17/25 tablet,extended release gabapentin 600 mg tablet 600 mg PO TID #270 tabs 08/21/25 gabapentin 100 mg capsule 200 mg (2 x 100 mg) PO TID #180 08/28/25 caps hydrochlorothiazide 12.5 mg tablet 12.5 mg PO QAM #90 tabs 08/28/25 topiramate 100 mg tablet 100 mg PO QPM #90 tabs 08/30/25 melatonin 10 mg tablet 10 mg PO HS PRN Sleep acetaminophen 650 mg tablet,extended release (Tylenol 8 Hour) 1,300 mg PO Q12H magnesium 200 mg tablet 500 mg PO QAM multivitamin 1 tab PO QAM pantoprazole 40 mg tablet,delayed release (Protonix) 40 mg PO QAM fexofenadine 180 mg tablet 180 mg PO QAM valsartan 40 mg tablet 40 mg PO QAM ciprofloxacin HCl 0.3 % eye drops See Rx Instructions ophthalmic (eye) BID PRN otorrhea levothyroxine 125 mcg tablet (Synthroid) 125 mcg PO QAM estradiol 0.01% (0.1 mg/gram) vaginal cream 1 g vaginal UD diclofenac sodium 75 mg tablet,delayed release 75 mg PO BID PRN pain furosemide 40 mg tablet See Rx Instructions PO .COMPLEX potassium chloride 10 mEq tablet,extended release 10 meq PO BID gabapentin 600 mg tablet 600 mg PO TID gabapentin 100 mg capsule 200 mg (2 x 100 mg) PO TID hydrochlorothiazide 12.5 mg tablet 12.5 mg PO QAM ferrous sulfate 325 mg (65 mg iron) tablet (Iron (ferrous sulfate)) 325 mg PO QAM metformin 500 mg tablet 500 mg PO PM rosuvastatin 5 mg tablet 5 mg PO HS topiramate 100 mg tablet 100 mg PO QPM ASK your surgeon for instructions diclofenac sodium 75 mg tablet,delayed release 75 mg PO BID PRN pain STOP taking 24 hours before surgery estradiol 0.01% (0.1 mg/gram) vaginal cream 1 g vaginal UD DO NOT take the morning of surgery magnesium 200 mg tablet 500 mg PO QAM multivitamin 1 tab PO QAM fexofenadine 180 mg tablet 180 mg PO QAM valsartan 40 mg tablet 40 mg PO QAM furosemide 40 mg tablet See Rx Instructions PO .COMPLEX potassium chloride 10 mEq tablet,extended release 10 meq PO BID hydrochlorothiazide 12.5 mg tablet 12.5 mg PO QAM ferrous sulfate 325 mg (65 mg iron) tablet (Iron (ferrous sulfate)) 325 mg PO QAM Take morning of surgery With a small sip of water, OTHERWISE NOTHING TO EAT OR DRINK AFTER MIDNIGHT: acetaminophen 650 mg tablet,extended release (Tylenol 8 Hour) 1,300 mg PO Q12H pantoprazole 40 mg tablet,delayed release (Protonix) 40 mg PO QAM ciprofloxacin HCl 0.3 % eye drops See Rx Instructions ophthalmic (eye) BID PRN otorrhea (if needed) levothyroxine 125 mcg tablet (Synthroid) 125 mcg PO QAM gabapentin 600 mg tablet 600 mg PO TID gabapentin 100 mg capsule 200 mg (2 x 100 mg) PO TID Take evening before surgery melatonin 10 mg tablet 10 mg PO HS PRN Sleep (if needed) acetaminophen 650 mg tablet,extended release (Tylenol 8 Hour) 1,300 mg PO Q12H ciprofloxacin HCl 0.3 % eye drops See Rx Instructions ophthalmic (eye) BID PRN otorrhea (if needed) furosemide 40 mg tablet See Rx Instructions PO .COMPLEX (if needed) potassium chloride 10 mEq tablet,extended release 10 meq PO BID gabapentin 600 mg tablet 600 mg PO TID gabapentin 100 mg capsule 200 mg (2 x 100 mg) PO TID metformin 500 mg tablet 500 mg PO PM rosuvastatin 5 mg tablet 5 mg PO HS topiramate 100 mg tablet 100 mg PO QPM Other Notes If you have any questions please call us at [phone] or [phone] or [phone] or [phone]
--- NOTE | 2025-09-10 11:17 | Anesthesiology Consultation ---
Date of Service September 10, 2025 Assessment & Plan (1) Encounter for pre-operative examination: - Infectious disease screening: Per assessment on 09/10/25- No known recent infectious disease contacts or current infectious disease symptoms. - Outpatient joint assessment: Pt currently scheduled for inpatient pathway. If surgeon requests review for outpatient joint pathway, patient is not a recommended candidate for outpatient joint program from anesthesia standpoint based on available information. - Hx "severe" PONV: "needs multiple nausea medications.." Patient states she received Emend with last back surgery ([facility] [place]) and it "worked well" - S/P Left PERFECTO (07/22/2022): Per anesthesia consult prior to surgery, patient preference for general anesthesia d/t concerns with lumbar spine surgery history > Grade 2 view, MAC#3, ETT 7.5, "Emend 40 mg PO in pre-op" > Patient confirms at PAT visit 09/10/25 that for upcoming surgery, would still have a preference for general anesthesia. - Acceptable risk for surgery pending upcoming cardiology visit ([facility] [place] [facility], appt 09/25). Chart Review Chart Review: Patient seen in Pre Admission Testing Teaching & Discussion Pre-Anesthesia Teaching/Discussion Notes: Instructed NPO after midnight before surgery,except medications with 15 cc of water. Medication instructions provided according to the [facility] guidelines. History Surgery Operation Date: 10/09/25 07:00 Proposed Procedures p Right Total Knee Arthroplasty - Raad Yusuf MD Height/Weight Height: 5 ft 4 in Weight: 100.8 kg Allergies Allergy/AdvReac Type Severity Reaction Status Date / Time amoxicillin AdvReac Mild Upset Verified 09/03/25 13:55 stomach, nausea clavulanic acid AdvReac Mild Upset Verified 09/03/25 13:55 [From Augmentin] stomach, nausea clindamycin AdvReac Unknown Gastrointestinal Verified 08/30/25 10:52 Upset Medications Home Medications Medication Instructions Recorded Confirmed Last Taken melatonin 10 mg tablet 10 mg PO HS PRN Sleep 08/08/19 08/30/25 07/21/22 20:00 acetaminophen 650 mg 1,300 mg PO Q12H 11/11/23 08/30/25 Unknown tablet,extended release (Tylenol 8 Hour) magnesium 200 mg tablet 500 mg PO QAM 05/12/24 08/30/25 Unknown multivitamin 1 tab PO QAM 05/12/24 08/30/25 Unknown pantoprazole 40 mg tablet,delayed 40 mg PO QAM #90 tabs 03/21/25 08/30/25 04/24/25 release (Protonix) fexofenadine 180 mg tablet 180 mg PO QAM 04/17/25 08/30/25 Unknown valsartan 40 mg tablet 40 mg PO QAM 04/17/25 08/30/25 04/24/25 ciprofloxacin HCl 0.3 % eye drops See Rx Instructions ophthalmic 07/17/25 08/30/25 Unknown (eye) BID PRN otorrhea #5 mL levothyroxine 125 mcg tablet 125 mcg PO QAM #90 tabs 07/30/25 08/30/25 Unknown (Synthroid) estradiol 0.01% (0.1 mg/gram) 1 g vaginal UD #42.5 grams 08/02/25 08/30/25 Unknown vaginal cream diclofenac sodium 75 mg 75 mg PO BID PRN pain #180 tabs 08/08/25 08/30/25 Unknown tablet,delayed release furosemide 40 mg tablet See Rx Instructions PO .COMPLEX 08/08/25 08/30/25 Unkno wn #10 tabs potassium chloride 10 mEq 10 meq PO BID #180 tabs 08/17/25 08/30/25 Unknown tablet,extended release gabapentin 600 mg tablet 600 mg PO TID #270 tabs 08/21/25 08/30/25 Unknown gabapentin 100 mg capsule 200 mg (2 x 100 mg) PO TID #180 08/28/25 08/30/25 Unknown caps hydrochlorothiazide 12.5 mg tablet 12.5 mg PO QAM #90 tabs 08/28/25 08/30/25 Unknown ferrous sulfate 325 mg (65 mg 325 mg PO QAM 08/30/25 08/30/25 Unknown iron) tablet (Iron (ferrous sulfate)) metformin 500 mg tablet 500 mg PO PM 08/30/25 08/30/25 Unknown rosuvastatin 5 mg tablet 5 mg PO HS 08/30/25 08/30/25 Unknown topiramate 100 mg tablet 100 mg PO QPM #90 tabs 09/03/25 09/03/25 Unknown Past Medical History Medical History Chronic venous insufficiency Follows with [facility] vascular Frequent PVCs Follows with [facility] cardio, 72 hour holter ordered at 10/22/25 cardio visit (patient awaiting results) Gastroparesis GERD (gastroesophageal reflux disease) Hearing deficit History of hypertension History of hypothyroidism Hx of perforation of tympanic membrane B/L, chronic/ongoing issue r/t previous ear tubes insertions per patient Hx of rosacea Hypertriglyceridemia Hx Iron deficiency anemia Following with [facility] heme, plan for iron infusions before surgery Neuropathy Left foot s/p back surgery Overweight Reason for topirmate per patient, seeing weight management Sleep apnea Recent dx, awaiting CPAP device from [facility] Exercise / Class Metabolic Activity III < 4 Walking/Shop/Light housework Past Family History Family History Grandmother (Maternal) Breast cancer, Onset Age: 70 BRCA gene mutation positive Aunt Breast cancer, Onset Age: 40 paternal BRCA gene mutation positive Family/Other BRCA gene mutation positive paternal cousin Father Myocardial infarction Grandfather (Maternal) Stroke Other No family history of adverse response to anesthesia Denies family history of Ovarian cancer Prostate cancer Diabetes Lung cancer Colorectal cancer Past Surgical History Surgical History History of colonoscopy with polypectomy History of esophagogastroduodenoscopy (EGD) History of lumbar discectomy 1988, L5-S1 microdisectomy 2014, "removed remaining bulging disc" History of lumbar laminectomy (1992) L5-S1 History of placement of ear tubes multiple History of tooth extraction History of total left hip arthroplasty Left PERFECTO: Per anesthesia consult prior to surgery, patient preference for general anesthesia d/t concerns with lumbar spine surgery history > Grade 2 view, MAC#3, ETT 7.5, "Emend 40 mg PO in pre-op" History of wisdom tooth extraction Nausea and vomiting after administration of anesthetic agent "Severe.. needs multiple nausea medications.." Patient states she received Emend with last back surgery ([facility]) and it "worked well" S/P cholecystectomy S/P tubal ligation Status post arthroscopy of right knee 08/21/20: LMA#4 Past Anesthesia History No Hx of Anesthesia Complications and No Family Hx of Anesthesia Complications History of PONV History of PONV and Hx of Motion Sickness (Situational) Social History Smoking Status: Never smoker Do You Dip or Chew Tobacco: No Hx Alcohol Use: No Hx Substance Use: No substance use type: does not use Review of Systems Intermittent palpitations. Patient denies chest pain, shortness of breath, fever, chills, cough, wheezing. Physical Exam Vital Signs BP 120/56 P 82 TEMP 97.8 SP02 97%RA RESP 16 Physical Full cervical extension range of motion. Full TMJ range of motion. TMD 3 finger breaths Mallampati Score II Dentition: single missing (side), multiple crowns, + implant Lungs: clear throughout to auscultation Cardiac: regular rate and rhythm, no murmurs noted Spine: normal Carotid arteries: negative bruit Extremities: no LE edema Lab Results Anesthesia Preop Results Results Anesthesia Widget: WBC 6.81 K/ul (4.8-10.8) 09/10/25 Hgb 11.1 g/dl (12.0-16.0) L 09/10/25 Hct 34.8 % (37.0-47.0) L 09/10/25 Plt 236 K/uL (130-400) 09/10/25 Na 140 mmol/L (136-145) 09/10/25 K 3.4 mmol/L (3.5-5.1) L 09/10/25 Cl 104 mmol/L (98-107) 09/10/25 CO2 29 mmol/L (21-32) 09/10/25 BUN 24 mg/dl (6-23) H 09/10/25 Creat 0.73 mg/dl (0.6-1.2) 09/10/25 Glucose Level 95 mg/dl (70-99(Fasting)) 09/10/25 PT 10.3 Seconds (9.0-12.0) 09/10/25 PTT 25 Seconds (21-31) 09/10/25 INR 1.0 (0.9-1.1) 09/10/25 Blood Type O Positive 09/10/25 Antibody Screen NEGATIVE 09/10/25 Testing Electrocardiogram Date: 08/22/25 SR with premature supraventricular complexes. 95bpm. Possible LAE. Cannot r/o anterior infarct, age undetermined. Unconfirmed tracings. Reviewed/done at [facility] [place] cardio visit from same day, "ECG today does show sinus rhythm with frequent PVCs." Chest X-Ray Date: 09/10/25 FINDINGS: The cardiac and mediastinal contours are normal. There is no focal pulmonary consolidation. There is no failure. There are no pleural effusions. There is no pneumothorax. There is a lumbar scoliosis with moderate degenerative change. IMPRESSION: No active disease in the chest. Echocardiogram Date: 08/16/25 EF 65-70%. No RWMA. no LVH. No significant valvular disease. Normal estimated RVSP. Grade I DD.
--- NOTE | 2025-10-01 07:51 | History & Physical Report ---
Date of Service October 01, 2025 Assessment & Plan (1) Right knee DJD: 65-year-old female with a history of a right knee arthroscopy 5 years ago with progressive right knee tricompartment DJD. She has failed conservative treatment. Her knee is limiting her activities she would like to have her right knee fixed. Plan: We are going to take her to the operating room and do a right total knee replacement. The risks and bents this procedure explained. Informed consent was obtained. Shall plan on stay in the hospital overnight and likely discharge postoperative day 1. She did recently see her hand patcher and had a cardiac workup which has been negative for some PVCs. She has been placed on some meto prolol. Will use aspirin for DVT prophylaxis. (2) Calcium pyrophosphate deposition disease (CPPD): (3) Hypertension: (4) Hypothyroidism: (5) Obesity: History of Present Illness Chief Complaint: . Persistent right medial knee pain and discomfort. Primary Care Provider: Unique Jefferson DO . The patient is a 65-year-old female long-term patient of mine who presents now for surgical treatment of her right knee. She has a history of right knee scope about 5 years ago. There really never helped her too much. She had significant chondrocalcinosis at that time and medial and patellofemoral compartment arthritis. She has been through extensive conservative treatment over the past several years which would become less successful. The shots really do not help much anymore. She would like to have her knee fixed. The patient does have a history of a left hip replacement done back in 2021 and it is done pretty well. She also has a history of chronic anemia with a negative workup. Allergies Allergy/AdvReac Type Severity Reaction Status Date / Time amoxicillin AdvReac Mild Upset Verified 09/25/25 10:53 stomach, nausea clavulanic acid AdvReac Mild Upset Verified 09/25/25 10:53 [From Augmentin] stomach, nausea clindamycin AdvReac Unknown Gastrointestinal Verified 09/25/25 10:53 Upset Home Medications Medication Instructions Recorded Confirmed Type melatonin 10 mg tablet 10 mg PO HS PRN Sleep 08/08/19 09/25/25 History acetaminophen 650 mg 1,300 mg PO Q12H 11/11/23 09/25/25 History tablet,extended release (Tylenol 8 Hour) magnesium 200 mg tablet 500 mg PO QAM 05/12/24 09/25/25 History multivitamin 1 tab PO QAM 05/12/24 09/25/25 History pantoprazole 40 mg tablet,delayed 40 mg PO QAM #90 tabs 03/21/25 09/25/25 Rx release (Protonix) fexofenadine 180 mg tablet 180 mg PO QAM 04/17/25 09/25/25 History valsartan 40 mg tablet 40 mg PO QAM 04/17/25 09/25/25 History ciprofloxacin HCl 0.3 % eye drops See Rx Instructions ophthalmic 07/17/25 09/25/25 Rx (eye) BID PRN otorrhea #5 mL levothyroxine 125 mcg tablet 125 mcg PO QAM #90 tabs 07/30/25 09/25/25 Rx (Synthroid) estradiol 0.01% (0.1 mg/gram) 1 g vaginal UD #42.5 grams 08/02/25 09/25/25 Rx vaginal cream diclofenac sodium 75 mg 75 mg PO BID PRN pain #180 tabs 08/08/25 09/25/25 Rx tablet,delayed release furosemide 40 mg tablet See Rx Instructions PO .COMPLEX 08/08/25 09/25/25 Rx #10 tabs potassium chloride 10 mEq 10 meq PO BID #180 tabs 08/17/25 09/25/25 Rx tablet,extended release gabapentin 600 mg tablet 600 mg PO TID #270 tabs 08/21/25 09/25/25 Rx gabapentin 100 mg capsule 200 mg (2 x 100 mg) PO TID #180 08/28/25 09/25/25 Rx caps hydrochlorothiazide 12.5 mg tablet 12.5 mg PO QAM #90 tabs 08/28/25 09/25/25 Rx ferrous sulfate 325 mg (65 mg 325 mg PO QAM 08/30/25 09/25/25 History iron) tablet (Iron (ferrous sulfate)) metformin 500 mg tablet 500 mg PO PM 08/30/25 09/25/25 History rosuvastatin 5 mg tablet 5 mg PO HS 08/30/25 09/25/25 History topiramate 100 mg tablet 100 mg PO QPM #90 tabs 09/03/25 09/25/25 Rx metoprolol succinate 50 mg 50 mg PO DAILY #30 tabs 11/25/25 11/25/25 Rx tablet,extended release 24 hr Past Med/Surg History Problem List Encounter for pre-operative examination Sacroiliitis Gastroparesis Common peroneal neuropathy of left lower extremity 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 Chronic venous insufficiency Degenerative joint disease of left hip Calcium pyrophosphate deposition disease (CPPD) Obesity Chronic back pain Right knee DJD Slow urinary stream Hypertension Hypertriglyceridemia Hypothyroidism Rosacea Medical History Iron deficiency anemia Following with [facility] heme, plan for iron infusions before surgery Frequent PVCs Follows with [facility] cardio, 72 hour holter ordered at 08/22/25 cardio visit (patient awaiting results) Overweight Reason for topirmate per patient, seeing weight management Sleep apnea Recent dx, awaiting CPAP device from [employer] Gastroparesis Chronic venous insufficiency Follows with [facility] vascular Hx of rosacea Hx of perforation of tympanic membrane B/L, chronic/ongoing issue r/t previous ear tubes insertions per patient Hypertriglyceridemia Hx History of hypothyroidism History of hypertension Neuropathy Left foot s/p back surgery GERD (gastroesophageal reflux disease) Hearing deficit Surgical History Nausea and vomiting after administration of anesthetic agent "Severe.. needs multiple nausea medications.." Patient states she received Emend with last back surgery ([facility]) and it "worked well" History of total left hip arthroplasty Left PERFECTO: Per anesthesia consult prior to surgery, patient preference for general anesthesia d/t concerns with lumbar spine surgery history > Grade 2 view, MAC#3, ETT 7.5, "Emend 40 mg PO in pre-op" Status post arthroscopy of right knee 08/21/20: LMA#4 History of lumbar discectomy 1988, L5-S1 microdisectomy 2014, "removed remaining bulging disc" History of lumbar laminectomy (1992) L5-S1 History of colonoscopy with polypectomy History of esophagogastroduodenoscopy (EGD) History of tooth extraction History of wisdom tooth extraction History of placement of ear tubes multiple S/P cholecystectomy S/P tubal ligation Family History Grandmother (Maternal) Breast cancer, Onset Age: 70 BRCA gene mutation positive Aunt Breast cancer, Onset Age: 40 paternal BRCA gene mutation positive Family/Other BRCA gene mutation positive paternal cousin Father Myocardial infarction Grandfather (Maternal) Stroke Other No family history of adverse response to anesthesia Denies family history of Ovarian cancer Prostate cancer Diabetes Lung cancer Colorectal cancer Social History Smoking Status: Never smoker Second Hand Exposure: No; Do You Dip or Chew Tobacco: No; Hx Alcohol Use: No Hx Substance Use: No Preferred Language: Mosotho Communication Ability: Effective Visual Impairment: Limited Hearing Ability: Use of Hearing Aid Employee Counselor Required: No Beliefs That Will Affect Care: None marital status: Current Living Situation: Spouse current occupational status: employed How many Children do You have: 2 Feels Safe at Home: Yes Childhood Exposure to Second-Hand Smoke: No caffeine: No Dental Care, Regularly: Yes Physical Activity Frequency: 3-4 Times per Week Seatbelt Use: always Sunscreen Use: Yes Assistive Devices: Glasses and Hearing Aid - Bilateral Review of Systems All systems reviewed & are unremarkable except as noted in HPI & below. Physical Exam . Physical examination reveals a pleasant middle-age female who looks in pretty good health. Examination of the right knee reveal patient ambulates independently. She has got a slight bit of limp. She got fairly neutral alignment to her knee. Well-healed portal sites. Minimal knee effusion. Range of motion 5-1 25. No particular pain with hip motion. She is neurologically intact. Negative straight leg raise. Constitutional WD/WN, vitals as above Respiratory normal respiratory effort, lungs clear to auscultation Cardiovascular RRR, no murmur, no edema Gastrointestinal (Abdomen) normal bowel sounds, soft, nontender, no hepatosplenomegaly Results & Data Results & Data Laboratory Results . Diagnostic Findings . X-ray of the right knee right knee were reviewed. Shows moderate tricompartment DJD. She got chondrocalcinosis medially and laterally. She got advanced patellofemoral arthritis. She got progressive loss of the medial joint space with little bit of tibiofemoral subluxation. PG Care Time/CCT Total # of Minutes Spent Total Time Spent with Patient: Total time spent is greater than 50% in coordination of care (as documented) at patient's floor/unit and/or counseling patient: Coding Level of Care Code 40614 INT INP/OBS CARE MIN Diagnoses Right knee DJD M17.11 Calcium pyrophosphate deposition disease (CPPD) M11.20 Essential hypertension I10 Hypertension type: essential hypertension Acquired hypothyroidism E03.9 Hypothyroidism type: acquired Class 2 severe obesity with serious comorbidity and body mass index (BMI) of 37.0 to 37.9 in adult, unspecified obesity type E66.812; Z68.37 Obesity type: unspecified obesity type Obesity classification: adult class 2 (BMI 35 - 39.9) Serious obesity comorbidity presence: with serious comorbidity Body mass index: BMI 37.0-37.9 (3) Hypertension Hypertension type: essential hypertension Qualified Code(s): I10 - Essential (primary) hypertension (4) Hypothyroidism Hypothyroidism type: acquired Qualified Code(s): E03.9 - Hypothyroidism, unspecified (5) Obesity Obesity type: unspecified obesity type Obesity classification: adult class 2 (BMI 35 - 39.9) Serious obesity comorbidity presence: with serious comorbidity Body mass index: BMI 37.0-37.9 Qualified Code(s): E66.812 - Obesity, class 2; Z68.37 - Body mass index [BMI] 37.0-37.9, adult
[~2025-10-09 07:17] MED LIST changes: -ACETAMINOPHEN 500 MG TAB PO SCH; +BUPIVACAINE 0.5 % 5 MG/1 ML PF 10ML VIAL ONE; -CeleBREX 200 MG CAP PO SCH; -FAMOTIDINE 20 MG TAB PO SCH; -LR 15ML/HR IV SCH; -LR 60ML/HR IV SCH; -METOCLOPRAMIDE HCL 10 MG TABLET PO SCH; +MIDAZOLAM HCL 1 MG/ML 2ML VIAL ONE; +ROPIVACAINE 0.5% 5 MG/ML 30 ML VIAL ONE; -Scopolamine 1 MG TDSY TD SCH; -Scopolamine CHECK PATCH PLACEMENT SCH; -TRANEXAMIC ACID 1,000 MG **IV Pre-op IV SCH; -ceFAZolin 2000MG 2,000 MG/15 ML SYR IV SCH
[2025-10-09] MEDS ORDERED: MIDAZOLAM HCL 1 MG/ML 2ML VIAL ONE (07:22)
[2025-10-09] MEDS ORDERED: PROPOFOL IV EMULSION 10 MG/ML 20 ML VIAL IV ONE ×2 (07:41)
[2025-10-09] MEDS ORDERED: ONDANSETRON INJ 2 MG/ML 2 ML VIAL ONE (07:42)
[2025-10-09] MEDS ORDERED: DEXAMETHASONE SOD INJ 4 MG/ML VIAL ONE ×2 (07:42)
[2025-10-09] MEDS: dexAMETHasone**PF** 10 MG/ML VIAL IV SCH (07:42)
[2025-10-09] MEDS: ACETAMINOPHEN 500 MG TAB PO SCH ×2 (07:42→14:32)
[2025-10-09] MEDS: METOCLOPRAMIDE HCL 10 MG TABLET PO SCH (07:42)
[2025-10-09] MEDS: FAMOTIDINE 20 MG TAB PO SCH (07:42)
[2025-10-09] MEDS: CeleBREX 200 MG CAP PO SCH (07:43)
[2025-10-09] MEDS: LR 60ML/HR IV SCH (07:43)
[2025-10-09] MEDS: LR 15ML/HR IV SCH (08:10)
[2025-10-09] MEDS: APREPITANT 40 MG CAP PO ONE (08:35)
--- NOTE | 2025-10-09 08:39 | History & Physical Bridge Note ---
Date of Service October 09, 2025 History & Physical Bridge Note I have examined the patient, reviewed the History & Physical and in the interval since the performance of the History & Physical I have noted the following changes of clinical significance: no changes noted
[2025-10-09] MEDS: ROPIV 0.5% 246mg, Ketorolac 30mg, EPINEPHrine 0.5mg in NSS INFIL SCH (09:06)
[2025-10-09] MEDS: ORTHO JOINT ANESTHETIC ONE (09:40)
--- NOTE | 2025-10-09 11:06 | Operative Report ---
PG Post Operative Report Pre & Post Diagnosis Operation Date: 10/09/25 08:55 Pre-Op Diagnosis: Right Knee Degenerative Joint Disease Post-Op Diagnosis: Right Knee Degenerative Joint Disease I identified the patient and participated in the time-out.: Yes Procedure Operation Date: 10/09/25 08:55 Actual Procedures p Right Total Knee Arthroplasty(Right) - Raad Yusuf MD Surgeon Raad Yusuf MD Event Executive Morro Rubio PA-C Estimated Blood Loss 50 Findings Consistent with Post-Op Diagnosis Operative findings were advanced right knee tricompartment DJD. She had extensive grade 4 [id number] disease of the patellofemoral compartment with eburnation. She had full-thickness cartilage loss in the medial compartment without much eburnation or osteophyte formation. She had some spotty grade 4 changes laterally. Moderate-sized joint effusion. Operative findings were a bit worse than what I would have expected based on her x-rays. Specimens Right knee sent for pathology. Anesthesia Type General Regional Complications none Disposition Accompanied Patient To Recovery: No Indications The patient is a 65-year-old female whose had a long history of right knee pain discomfort over the years. She underwent a right knee arthroscopy about 5 years ago with minimal relief. She been through extensive conservative treatment over the past 5 years which would become less successful over time. X-ray showed moderate to advanced knee arthritis with chondrocalcinosis. She failed all conservative measures. She elected proceed with right total knee arthroplasty. Description of Procedure Operative implants consist of: 1 Biomet Vanguard size 67.5 right posterior stabilized femoral component. 2. Biomet size 71 tibial tray. 3. 10 mm Po stabilized polyethylene insert. 4. 31 x 8 all poly patella. The patient was taken to the operating, identified, placed on the operating table in the supine position. All contact areas were appropriately padded. IV antibiotics provided by anesthesia team. A an adductor canal block had been provided in the holding area. The general anesthetic was implemented by the anesthesia team. A right thigh tent was then placed. The right lower extremity was then prepped and draped in usual sterile fashion. The right leg was elevated and exsanguinated with use of an Esmarch and tourniquet placed at 300 mmHg. An anterior approach to the right knee was then performed through a longitudinal incision centered over the patella. Sharp dissection was Through subcutaneous tissue down the extensor mechanism. A medial parapatellar arthrotomy incision was made. Some subperiosteal dissection was carried out medially. The fat pad was dissected from his patella tendon. The lateral patellofemoral ligament was released. Patella was subluxated laterally and the knee was flexed. The osteophytes were taken off distal femur. ACL and PCL were then released from distal femur and the tibia subluxate anteriorly. The external tibial LYMErix then placed on the anterior face of the tibia adjusted 12 mm medially. The proximal tibial cut was made and moved back to 2 mm of bone from the medial side. The tibia was sized to a size 71. Attention then drawn the femur. The distal femur was entered with a sharp drill. Intramedullary canal was suction. A right 5 degree valgus cutting guide was placed. The distal femoral cutting block was pinned in place. The distal femoral cut was made take an additional 3 mm of bone off distal femur. The femur was then sized to a size 67.5. The AP cutting block was pinned parallel to the epicondylar axis which was 4 degrees of external rotation. The anterior cut, anterior chamfer, posterior cut, posterior chamfer cuts were made. The box cutting guide was placed and just slight lateral and the box cut was made. The knee was flexed. The remnants of the medial and lateral menisci were excised. The osteophytes taken off the posterior aspect of the femur. A trial femoral component was placed. The tibial tray was pinned in Viry external rotation and the drill and stem punch were used. Defect in proximal tibia for the tibial tray. Knee was then trialed and the 10 mm insert fit most appropriately. Attention then drawn the patella. The patella was cleaned well soft tissue. Patella was fairly worn and the thickness measured about 17. We cut this down to about 12 to a 13. Was sized to a size 31 patella. The lug holes were drilled for a 31 patella. The lateral osteophytes removed. Patella button was placed. Knee was taken through range of motion patella tracked nicely with no thumbs test. Attention jointer placed in permanent components. All trial components were removed. Bone plug was placed into distal femur limit blood loss. A double batch Palacos G cement was mixed. BiomEmotive size 67.5 right posterior stabilized femoral component, size 71 tibial tray, a 10 mm pro stabilized polyethylene insert, and a 31 x 8 all poly patella then cemented in place. The knee was brought out into full extension till cement hardened. Final cement check was then performed. The pericapsular tissues were injected with total 100 cc of Ortho mix. The patient did receive 1 g of tranexamic acid. The tourniquet was then let down for final tourniquet time of 56 minutes. Hemostasis assured with electrocautery. Extensor Meclomen then closed with combination 1 PDS suture and #1 Vicryl suture in a [id number] fashion. Extensor Meclomen checked found to be intact and subcutaneous tissue then closed with 2 Dexon suture in a buried interrupted fashion skin was closed skin enrique. Leg was then cleaned and dried and a sterile dressing was Xeroform, 4 fours, sterile cast padding, Ced bandage were applied. The patient was then brought out of general esthesia and transferred to the recovery room in stable condition. Patient tolerated the procedure well and there were no complications. Morro Rubio, my physician respiratory assistant, was present for the entire procedure. His assistance was essential and required for appropriate patient positioning, prepping and draping, surgical exposure, performing the technical details of the operation, placement the implants, closure of the wound, and placement of the sterile bandage. I attest to the content of the Intraoperative Record and any orders documented therein. Any exceptions are noted below.
--- NOTE | 2025-10-09 11:18 | XRay Report ---
XR knee RT 1 or 2V routine HISTORY: 65 years-old Female Surgical Post Op COMPARISON: 07/05/2025 TECHNIQUE: 2 views of the right knee FINDINGS: Satisfactory alignment of the total joint arthroplasty with patellar resurfacing. Anterior midline sk in enrique with expected operative soft tissue swelling and deep tissue air. IMPRESSION: Right knee arthroplasty with expected postoperative findings. ACT 112: Negative or not required by law. The above report was generated using voice recognition software. It may contain grammatical, syntax o r spelling errors. Electronically signed by: Jhonny Obregon M.D. 10/09/2025 11:17 AM
[2025-10-09] MEDS ORDERED: ATROPINE SULFATE 0.1 MG/ML 10ML SYR IV PRN (11:31)
[2025-10-09] MEDS: ONDANSETRON INJ 2 MG/ML 2 ML VIAL IV PRN ×2 (11:36→14:32)
[2025-10-09] MEDS ORDERED: METOCLOPRAMIDE HCL INJ 5 MG/ML 2 ML VIAL IV PRN (12:29)
[2025-10-09] MEDS ORDERED: GLUCOSE 10 TAB/TUBE PO PRN (12:29)
[2025-10-09] MEDS ORDERED: GLUCOSE 40% GEL 15 GM TUBE PO PRN (12:29)
[2025-10-09] MEDS ORDERED: CARBOHYDRATES FOR HYPOGLYCEMIA PO PRN (12:29)
[2025-10-09] MEDS ORDERED: GLUCAGON FOR INJ 1 MG VIAL SQ PRN (12:29)
[2025-10-09] MEDS ORDERED: DEXTROSE 50% 50 ML SYRINGE IV PRN (12:29)
[2025-10-09] MEDS ORDERED: NALOXONE HCL 0.4 MG/1 ML VIAL/CARP IV PRN (12:29)
[2025-10-09] MEDS ORDERED: MAGNESIUM HYDROXIDE SUSP 30 ML UDC PO PRN (12:29)
[2025-10-09] MEDS ORDERED: ALUMINUM/MAGNESIUM SUSP 30 ML UDC PO PRN (12:29)
[2025-10-09] MEDS ORDERED: FUROSEMIDE 40 MG TAB PO SCH (12:29)
[2025-10-09] MEDS ORDERED: PHARMACY GLYCEMIC MGMT CONSULT PRN (12:29)
[2025-10-09] MEDS: KETOROLAC 30 MG/ML VIAL IV SCH (12:54)
[2025-10-09] MEDS: KETOROLAC 30 MG/ML VIAL ONE (14:50)
[2025-10-09] MEDS: SODIUM CHLORIDE 0.9% 1,000 ML IV SCH (14:50)
[2025-10-09] MEDS: GABAPENTIN 600 MG TAB PO SCH (15:24)
[2025-10-09] MEDS: INSULIN ASPART PER UNIT CHARGE SC SCH (17:15)
[2025-10-09] MEDS: HYDROmorphone INJ 0.5 MG/0.5 ML SYR IV PRN (18:45)
[2025-10-09] MEDS: TRANEXAMIC ACID / 0.7% NACL 1,000 MG/100 ML BAG IV SCH (18:51)
[2025-10-09] MEDS: ASCORBIC ACID 500 MG TAB PO SCH (18:55)
[2025-10-09] MEDS ORDERED: SENNA 8.6 MG TAB PO SCH (21:00)
[2025-10-09] MEDS: SENNA 8.6 MG TAB PO SCH (21:31)
[2025-10-09] MEDS: TOPIRAMATE 100 MG TAB PO SCH (21:31)
[2025-10-09] MEDS: GABAPENTIN 100 MG CAP PO SCH (21:40)
[2025-10-09] MEDS: ROSUVASTATIN CALCIUM 5 MG TAB PO SCH (21:40)
[2025-10-09] MEDS: POTASSIUM CHLORIDE 10 MEQ TABCR PO SCH (21:40)
[2025-10-09] MEDS: DOCUSATE SODIUM 100 MG CAP PO SCH (21:40)
[2025-10-09] MEDS: ASPIRIN 81 MG ECTAB PO SCH (21:41)
[2025-10-10] MEDS: MELATONIN 3 MG TAB PO PRN (02:56)
[2025-10-10] MEDS: LEVOTHYROXINE SODIUM 125 MCG TABLET PO SCH (06:20)
[2025-10-10 07:13] LABS: Hematocrit (blood only) 30.0 % (37.0-47.0); Hemoglobin 9.7 g/dL (12.0-16.0); Mean Corpuscular Hemoglobin 26.9 pg (25.0-34.0); Mean Corpuscular Volume 83.1 fL (80.0-100.0); Platelet Count 200 K/uL (130-400); RDW Standard Deviation 49.9 fL (36.4-46.3); Red Blood Count 3.61 M/uL (4.20-5.40); White Blood Count 9.46 K/ul (4.8-10.8)
[2025-10-10 07:49] LABS: Anion Gap 8.0 (3-11); Blood Urea Nitrogen 19.0 mg/dl (6-23); Calcium 8.1 mg/dl (8.6-10.3); Carbon Dioxide 27.0 mmol/L (21-32); Chloride 105.0 mmol/L (98-107); Creatinine Clr Calc Pharmacy 78.5 ml/min; Glucose 98.0 mg/dl (70-99(Fasting)); Potassium 3.3 mmol/L (3.5-5.1); Sodium 140.0 mmol/L (136-145)
[2025-10-10 07:56] LABS: Hemoglobin A1C 5.4 % (4.5-5.6)
--- NOTE | 2025-10-10 08:39 | Orthopedic Progress Note ---
Date of Service October 10, 2025 Assessment & Plan (1) Status post total right knee replacement: * Continue Current Treatment * Disposition: home, PT * Daily treatment: Physical Therapy/ Occupational Therapy per protocol * Weight bearing status: WBAT * Continue to monitor for ABLA * Pain control * DVT prophylaxis, ASA * Office/hospital f/u 2 weeks for progress check and staple/suture removal * Plan for discharge today pending PT/OT clearance Subjective .Active Problems: S/p right TKA POD 1 65 y/o female s/p right TKA. Doing well overall, pain managed and improved function. Denies fever/chills, chest pain/SOB, nausea/vomiting. Otherwise no complaints. Review of Systems All systems reviewed & are unremarkable except as noted in HPI & below. Physical Exam . * General: Alert and oriented, no acute distress * Constitutional: well-developed, well-nourished. * Respiratory: Normal respiratory effort, no distress * Gastrointestinal: No tenderness to palpation, no rigidity or guarding. * Skin: No rash or lesion. * Neurologic: Grossly normal * Musculoskeletal: right knee surgical dressing CDI, not removed for exam. Otherwise no obvious deformity or overlying skin changes RLE. Diffuse TTP distal thigh and knee region. Otherwise no specific tenderness of proximal thigh, lower leg, foot/ankle. AROM knee flexion 100 degrees. AROM foot/ankle intact. Sensation intact plantar/dorsal foot. Brisk capillary refill. Results & Data Results & Data Laboratory Results . Diagnostic Findings . Knee X-Ray 10/09/25 10:58 XR knee RT 1 or 2V routine HISTORY: 65 years-old Female Surgical Post Op COMPARISON: 07/05/2025 TECHNIQUE: 2 views of the right knee FINDINGS: Satisfactory alignment of the total joint arthroplasty with patellar resurfacing. Anterior midline skin enrique with expected operative soft tissue swelling and deep tissue air. IMPRESSION: Right knee arthroplasty with expected postoperative findings. ACT 112: Negative or not required by law. The above report was generated using voice recognition software. It may contain grammatical, syntax or spelling errors. Electronically signed by: Jhonny Obregon M.D. 10/09/2025 11:17 AM PG Care Time/CCT Total # of Minutes Spent Total Time Spent with Patient: Total time spent is greater than 50% in coordination of care (as documented) at patient's floor/unit and/or counseling patient: Coding Level of Care Code 39850 Post Operative Follow-Up Diagnoses Status post total right knee replacement Z96.651
[2025-10-10] MEDS ORDERED: NON-FORMULARY MEDICATION (Multivitamin Tablet) PO SCH (09:00)
[2025-10-10] MEDS: FEXOFENADINE HCL 180 MG TAB PO SCH (09:06)
[2025-10-10] MEDS: VALSARTAN 80 MG TAB PO SCH (09:06)
[2025-10-10] MEDS: hydroCHLOROthiazide 25 MG TAB PO SCH (09:06)
[2025-10-10] MEDS: METOPROLOL SUCC 50MG EXT REL TAB PO SCH (09:06)
[2025-10-10] MEDS: MAGNESIUM OXIDE 400 MG TAB PO SCH (09:07)
[2025-10-10] MEDS: MULTIVITAMIN TAB PO SCH (09:07)
[2025-10-10] MEDS: dexAMETHasone 10 MG in SYRINGE 0 ML IV SCH (10:26)
[2025-10-10 12:44] VITALS: BP 112/72; PULSE 78; RESP 17; TEMP 97.7; O2SAT 96
--- NOTE | 2025-10-11 11:26 | Anesthesiology Progress Note ---
Date of Service October 10, 2025 Anesthesia Post Procedure Vital Signs Vital Signs: Temp Pulse Resp BP Pulse Ox O2 Del Method 10/10/25 12:30 97.7 F 78 17 112/72 96 Room Air Pain Intensity Right Knee: Pain Intensity: 5 Transfer of Care Handoff Completed per policy Notes Mental Status: alert / awake / arousable and participated in evaluation Patient Amnestic to Procedure: Yes Nausea / Vomiting: adequately controlled Pain: adequately controlled Airway Patency, RR, SpO2: stable & adequate BP & HR: stable & adequate Hydration State: stable & adequate Anesthetic Complications: no major complications apparent and Pt Satisfied with anesthetic care
== END 2025-10-10 13:42 | disposition home health service (06) ==
LOC: ASU 07:17 → 3N 07:17